=== PATIENT | male | born 1940 | race Caucasian/White ===

== ENCOUNTER 2019-10-04 13:38 | Observation (INO) | payer MEDICARE, BC ==
[~2019-10-04] VITALS: Ht 175.3 cm; Wt 93.0 kg
[2019-10-04] VITALS (7 sets, daily range): BP systolic 119–152; BP diastolic 54–74
--- NOTE | 2019-10-04 01:00 | NUR ---
patient arrived on the floor from short stay for observation after de clotting his LAUREEN fistula with a purse loop suture attached. per RN, Dr. Arevalo is going to see pt later tonight. 2x2 dressing on the fistula with some bleeding noted, PLUSH WEAVER Sara made aware and will continue to monitor . pt in no acute distress
[2019-10-04 11:37] LABS: BASOPHILS # (AUTO) 0.1 X10'3 (0-0.2); BASOPHILS % (AUTO) 0.9 % (0-1); EOSINOPHILS # (AUTO) 0.2 X10'3 (0-0.9); EOSINOPHILS % (AUTO) 1.8 % (0-6); HEMATOCRIT 33.9 % (42.0-52.0); HEMOGLOBIN 11.9 g/dl (14.0-17.9); LYMPHOCYTES # (AUTO) 1.2 X10'3 (1.1-4.8); LYMPHOCYTES % (AUTO) 12.2 % (21-51); MEAN CORPUSCULAR HEMOGLOBIN 34.7 PG (27.0-31.0); MEAN CORPUSCULAR HGB CONC 35.2 g/dL (33.0-36.5); MEAN CORPUSCULAR VOLUME 98.7 FL (78-98); MEAN PLATELET VOLUME 7.8 FL (7.4-10.4); MONOCYTES # (AUTO) 0.5 X10'3 (0-0.9); NEUTROPHILS # (AUTO) 7.8 X10'3 (1.8-7.7); NEUTROPHILS % (AUTO) 80.1 % (42-75); PLATELET COUNT 273 X10'3 (140-440); RED BLOOD COUNT 3.44 X10'6 (4.70-6.10); RED CELL DISTRIBUTION WIDTH 12.6 % (11.5-14.5); WHITE BLOOD COUNT 9.7 X10'3 (4.5-11.0)
[2019-10-04 11:48] LABS: ALBUMIN 3.6 G/DL (3.4-5.0); ANION GAP 11 (8-16); BLOOD UREA NITROGEN 49 MG/DL (7-18); BUN/CREATININE RATIO 7.1 (5.4-32.0); CALCIUM 9.1 MG/DL (8.5-10.1); CHLORIDE 106 MMOL/L (99-107); CREATININE 6.94 MG/DL (0.60-1.10); GLUCOSE 92 MG/DL (70-104); POTASSIUM 3.8 MMOL/L (3.5-5.1); SODIUM 145 MMOL/L (135-145); TOTAL CARBON DIOXIDE 27.6 MMOL/L (24-32); eGFR 8 ML/MIN
[~2019-10-04 13:38] MED LIST: normal saline 1000ml 1,000 ML IV SCH; tPA-cathflo 2 MG/2 ml IV flush ONE
[2019-10-04] MEDS ORDERED: LIDOcaine 1%/PF 5ML 10 MG/ML VIAL ONE (15:00)
[2019-10-04] MEDS ORDERED: iohexol 300mg/ml 100ml inj. ONE ×2 (15:01→16:17)
[2019-10-04] MEDS ORDERED: heparin 1,000 UNITS/NS 500ml 500 ML ONE ×2 (15:01→16:58)
[2019-10-04] MEDS ORDERED: fentaNYL/PF 50MCG/1 ML 2ML syringe ONE ×3 (15:01→16:20)
[2019-10-04] MEDS ORDERED: midazolam 2 mg/2 ml injection ONE ×5 (15:01→16:18)
[2019-10-04] MEDS ORDERED: heparin 1,000unit/ml 10ml vial 10 ML ONE (16:16)
[2019-10-04] MEDS ORDERED: HYDROmorphone 1 mg/ml syringe ONE ×2 (16:20→17:05)
--- NOTE | 2019-10-04 19:30 | NUR ---
ENTERED ROOM TO BEGIN D/C. PATIENT FISTULA SITE BLEEDING. DR GALLEGOS ASSESSED PURSE LOOP CLOSURE AND HEMOSTASIS WAS NOT ACHIEVED WITHOUT LOOP IN PLACE. PATIENT WAS TRANSFERRED TO [facility] AND ADMITTED FOR OBSERVATION OVERNIGHT. HOSPITALIST NOTIFIED BY DR GALLEGOS. PATIENT HAD ALL BELONGINGS.
--- NOTE | 2019-10-04 19:38 | NUR ---
Patient in room . I have received report from GWEN Ruano (short stay) and had the opportunity to ask questions and assume patient care. Addendum: 10/04/19 at 1938 by Conchita Scott RN Amended: Links added.
[2019-10-04] MEDS ORDERED: acetaminophen 325mg tablet PO PRN ×2 (20:15)
[2019-10-04] MEDS ORDERED: ondansetron/PF 4mg/2ml inj IV PRN (20:15)
[2019-10-04] MEDS ORDERED: bisacodyl 10mg suppository rectal RC PRN (20:15)
[2019-10-05] VITALS: BP 101/50
[2019-10-05 05:35] LABS: BASOPHILS # (AUTO) 0.1 X10'3 (0-0.2); BASOPHILS % (AUTO) 1.1 % (0-1); EOSINOPHILS # (AUTO) 0.2 X10'3 (0-0.9); EOSINOPHILS % (AUTO) 2.8 % (0-6); HEMATOCRIT 28.5 % (42.0-52.0); LYMPHOCYTES # (AUTO) 1.3 X10'3 (1.1-4.8); LYMPHOCYTES % (AUTO) 17.2 % (21-51); MEAN CORPUSCULAR HEMOGLOBIN 34.4 PG (27.0-31.0); MEAN CORPUSCULAR VOLUME 98.3 FL (78-98); MONOCYTES # (AUTO) 0.6 X10'3 (0-0.9); MONOCYTES % (AUTO) 8.2 % (2-12); NEUTROPHILS # (AUTO) 5.4 X10'3 (1.8-7.7); NEUTROPHILS % (AUTO) 70.7 % (42-75); PLATELET COUNT 224 X10'3 (140-440); RED CELL DISTRIBUTION WIDTH 12.4 % (11.5-14.5); WHITE BLOOD COUNT 7.7 X10'3 (4.5-11.0)
[2019-10-05 05:37] LABS: ALANINE AMINOTRANSFERASE 8 U/L (12-78); ALBUMIN 2.8 G/DL (3.4-5.0); ALKALINE PHOSPHATASE 81 IU/L (46-116); ANION GAP 8 (8-16); ASPARTATE AMINO TRANSFERASE 10 U/L (10-37); BILIRUBIN,TOTAL 0.4 MG/DL (0.1-1.0); BLOOD UREA NITROGEN 51 MG/DL (7-18); BUN/CREATININE RATIO 7.2 (5.4-32.0); CALCIUM 8.2 MG/DL (8.5-10.1); CHLORIDE 110 MMOL/L (99-107); CREATININE 7.05 MG/DL (0.60-1.10); GLUCOSE 84 MG/DL (70-104); PHOSPHORUS 5.1 MG/DL (2.3-4.5); POTASSIUM 4.2 MMOL/L (3.5-5.1); SODIUM 146 MMOL/L (135-145); TOTAL CARBON DIOXIDE 28.3 MMOL/L (24-32); TOTAL PROTEIN 5.7 G/DL (6.4-8.2); eGFR 8 ML/MIN
--- NOTE | 2019-10-05 06:29 | NUR ---
Problems reprioritized. Patient report given, questions answered & plan of care reviewed with GWEN Basurto.
--- NOTE | 2019-10-05 06:44 | NUR ---
Patient in room [facility]. I have received report from CHRISTIANE Posada RN and had the opportunity to ask questions and assume patient care.
[2019-10-05] MEDS ORDERED: normal saline 1000ml 250 ML IV PRN (06:52)
[2019-10-05] MEDS ORDERED: normal saline 1000ml 100 ML IV PRN (06:52)
[2019-10-05 07:40] VITALS: BP 102/48
--- NOTE | 2019-10-05 10:56 | NUR ---
DM consult re: "pt on dialysis". Pt with no listed PMH of diabetes and no A1c from current or past visits. Likely pt sees an outpatient renal dietitian as pt with ESRD on routine HD. No nutrition education warranted at this time. Pt pending discharge. Will continue to follow. Addendum: 10/05/19 at [address] Amended: Links added.
--- NOTE | 2019-10-05 11:15 | NUR ---
Patient discharged into his own care. Patient discharge teaching was done with Patient only. Patient was educated on his appointment with linnea at 1420. Patient understands and has already set up a ride. No new medications were prescribed at discharge so no change to medication regime. Patient left with all belongings upon discharge, and IV was taken out at this time as well. IV was whole and intact upon removal. patient shwoed minimal signs of bleeding upon removal of IV. Patient taken down to lobby via wheel chair.
--- NOTE | 2019-10-10 09:39 | NUR ---
case management DC follow up: post procedure/cath clot LUE fistula. Unable to contact/pt phone does not have VM, no answer.
== END 2019-10-05 11:06 | disposition home or self-care (01) ==
LOC: SSTAY O 13:38 → SUR 3N 20:15
PROVIDERS: ADMIT Internal Medicine Critical Care Medicine; ATTEND Radiology Vascular & Interventional Radiology
DX: T82.868A Thrombosis due to vascular prosthetic devices, implants and grafts, initial encounter (principal); I12.0 Hypertensive chronic kidney disease with stage 5 chronic kidney disease or end stage renal disease; N18.6 End stage renal disease; G47.30 Sleep apnea, unspecified; Z96.659 Presence of unspecified artificial knee joint; Z86.718 Personal history of other venous thrombosis and embolism; Z99.2 Dependence on renal dialysis
CPT/HCPCS: 36415; 36905; 80048; 80053; 83735; 84100; 85025; 87081; C1725; C1769; C1894; G0378; J1170; J1644; J2250; J2997; J3010; Q9967; 99152; 99153

== ENCOUNTER 2019-12-19 09:33 | Day surgery (SDC) | payer MEDICARE, BC ==
[~2019-12-19] VITALS: Ht 177.8 cm; Wt 93.7 kg
[2019-12-19] VITALS (7 sets, daily range): BP systolic 109–121; BP diastolic 51–80
[2019-12-19] MEDS ORDERED: normal saline 1000ml 1,000 ML IV SCH (10:15)
[2019-12-19] MEDS ORDERED: midazolam 2 mg/2 ml injection ONE ×3 (10:29→12:05)
[2019-12-19] MEDS ORDERED: LIDOcaine 1%/PF 5ML 10 MG/ML VIAL ONE (10:29)
[2019-12-19] MEDS ORDERED: iohexol 300mg/ml 100ml inj. ONE (10:30)
[2019-12-19] MEDS ORDERED: fentaNYL/PF 50MCG/1 ML 2ML syringe ONE ×3 (10:30→11:59)
[2019-12-19] MEDS ORDERED: heparin 1,000 UNITS/NS 500ml 500 ML ONE ×2 (10:30→10:46)
[2019-12-19 10:32] LABS: ALANINE AMINOTRANSFERASE 17 U/L (12-78); ALBUMIN 2.9 G/DL (3.4-5.0); ALBUMIN/GLOBULIN RATIO 0.9 (1.1-1.5); ALKALINE PHOSPHATASE 131 IU/L (46-116); ANION GAP 10 (8-16); ASPARTATE AMINO TRANSFERASE 17 U/L (10-37); BILIRUBIN,TOTAL 0.6 MG/DL (0.1-1.0); BLOOD UREA NITROGEN 38 MG/DL (7-18); BUN/CREATININE RATIO 5.4 (5.4-32.0); CALCIUM 9.1 MG/DL (8.5-10.1); CHLORIDE 111 MMOL/L (99-107); CREATININE 7.01 MG/DL (0.60-1.10); GLUCOSE 94 MG/DL (70-104); POTASSIUM 3.6 MMOL/L (3.5-5.1); SODIUM 150 MMOL/L (135-145); TOTAL CARBON DIOXIDE 29.5 MMOL/L (24-32); TOTAL PROTEIN 6.3 G/DL (6.4-8.2); eGFR 8 ML/MIN
[2019-12-19] MEDS ORDERED: tPA-cathflo 2 MG/2 ml IV flush ONE (11:02)
[2019-12-19] MEDS ORDERED: heparin 1,000unit/ml 10ml vial 10 ML ONE (11:35)
== END 2019-12-19 14:55 | disposition home or self-care (01) ==
LOC: SSTAY O 09:33
PROVIDERS: ATTEND Radiology Diagnostic Radiology
DX: T82.868A Thrombosis due to vascular prosthetic devices, implants and grafts, initial encounter (principal); N18.6 End stage renal disease; Z88.8 Allergy status to other drugs, medicaments and biological substances; Y83.2 Surgical operation with anastomosis, bypass or graft as the cause of abnormal reaction of the patient, or of later complication, without mention of misadventure at the time of the procedure; Y92.89 Other specified places as the place of occurrence of the external cause
CPT/HCPCS: 36415; 36905; 80053; 99152; 99153; C1725; C1769; C1894; J1644; J2250; J2997; J3010; Q9967

== ENCOUNTER 2020-02-17 09:38 | Day surgery (SDC) | payer MEDICARE, BC ==
[~2020-02-17] VITALS: Ht 175.3 cm; Wt 93.5 kg
[2020-02-17] VITALS (7 sets, daily range): BP systolic 92–129; BP diastolic 51–62
[2020-02-17] MEDS ORDERED: normal saline 1000ml 1,000 ML IV PRN (10:00)
[2020-02-17] MEDS ORDERED: NO HOME MEDS (10:02)
[2020-02-17 10:31] LABS: ALBUMIN 2.7 G/DL (3.4-5.0); ANION GAP 12 (8-16); BLOOD UREA NITROGEN 47 MG/DL (7-18); BUN/CREATININE RATIO 5.7 (5.4-32.0); CHLORIDE 106 MMOL/L (99-107); CREATININE 8.19 MG/DL (0.60-1.10); GLUCOSE 89 MG/DL (70-104); POTASSIUM 3.3 MMOL/L (3.5-5.1); SODIUM 143 MMOL/L (135-145); eGFR 6 ML/MIN
[2020-02-17] MEDS ORDERED: tPA-cathflo 2 MG/2 ml IV flush ONE (11:09)
[2020-02-17] MEDS ORDERED: iohexol 300mg/ml 100ml inj. ONE (13:25)
[2020-02-17] MEDS ORDERED: LIDOcaine 1%/PF 5ML 10 MG/ML VIAL ONE (13:25)
[2020-02-17] MEDS ORDERED: midazolam 2 mg/2 ml injection ONE ×3 (13:33→14:16)
[2020-02-17] MEDS ORDERED: fentaNYL/PF 50MCG/1 ML 2ML syringe ONE ×4 (13:33→14:43)
[2020-02-17] MEDS ORDERED: heparin 1,000 UNITS/NS 500ml 500 ML ONE (13:33)
== END 2020-02-17 17:00 | disposition home or self-care (01) ==
LOC: SSTAY O 09:38
PROVIDERS: ATTEND Radiology Diagnostic Radiology
DX: T82.868A Thrombosis due to vascular prosthetic devices, implants and grafts, initial encounter (principal); Z88.8 Allergy status to other drugs, medicaments and biological substances; Y83.2 Surgical operation with anastomosis, bypass or graft as the cause of abnormal reaction of the patient, or of later complication, without mention of misadventure at the time of the procedure; Y92.89 Other specified places as the place of occurrence of the external cause
CPT/HCPCS: 36415; 36905; 80048; 99152; 99153; C1725; C1769; C1894; J1644; J2250; J2997; J3010; Q9967

== ENCOUNTER 2020-04-22 06:19 | Day surgery (SDC) | payer MEDICARE, BC ==
[~2020-04-22] VITALS: Ht 175.3 cm; Wt 89.4 kg
[2020-04-22] VITALS (7 sets, daily range): BP systolic 99–144; BP diastolic 39–79
[~2020-04-22 06:19] MED LIST changes: +NO HOME MEDS; -normal saline 1000ml 1,000 ML IV SCH; -tPA-cathflo 2 MG/2 ml IV flush ONE
[2020-04-22] MEDS ORDERED: normal saline 1000ml 1,000 ML IV SCH (06:40)
[2020-04-22 07:26] LABS: BASOPHILS # (AUTO) 0.1 X10'3 (0-0.2); BASOPHILS % (AUTO) 1.3 % (0-1); EOSINOPHILS # (AUTO) 0.3 X10'3 (0-0.9); EOSINOPHILS % (AUTO) 4.4 % (0-6); HEMATOCRIT 30.1 % (42.0-52.0); HEMOGLOBIN 10.2 g/dl (14.0-17.9); LYMPHOCYTES # (AUTO) 0.9 X10'3 (1.1-4.8); LYMPHOCYTES % (AUTO) 12.1 % (21-51); MEAN CORPUSCULAR HEMOGLOBIN 34.6 PG (27.0-31.0); MEAN CORPUSCULAR VOLUME 101.6 FL (78-98); MONOCYTES # (AUTO) 0.6 X10'3 (0-0.9); MONOCYTES % (AUTO) 7.2 % (2-12); NEUTROPHILS # (AUTO) 5.8 X10'3 (1.8-7.7); PLATELET COUNT 304 X10'3 (140-440); RED BLOOD COUNT 2.96 X10'6 (4.70-6.10); RED CELL DISTRIBUTION WIDTH 19.5 % (11.5-14.5); WHITE BLOOD COUNT 7.7 X10'3 (4.5-11.0)
[2020-04-22 07:42] LABS: ANION GAP 10 (8-16); BLOOD UREA NITROGEN 43 MG/DL (7-18); BUN/CREATININE RATIO 5.3 (5.4-32.0); CALCIUM 8.5 MG/DL (8.5-10.1); CHLORIDE 103 MMOL/L (99-107); CREATININE 8.11 MG/DL (0.60-1.10); GLUCOSE 85 MG/DL (70-104); POTASSIUM 3.7 MMOL/L (3.5-5.1); SODIUM 140 MMOL/L (135-145); TOTAL CARBON DIOXIDE 27.5 MMOL/L (24-32); eGFR 6 ML/MIN
[2020-04-22 08:08] LABS: PLATELET ESTIMATE NORMAL
[2020-04-22] MEDS ORDERED: fentaNYL/PF 50MCG/1 ML 2ML syringe ONE ×4 (08:31→10:27)
[2020-04-22] MEDS ORDERED: iohexol 300mg/ml 100ml inj. ONE (08:31)
[2020-04-22] MEDS ORDERED: LIDOcaine 1%/PF 5ML 10 MG/ML VIAL ONE ×2 (08:31→10:38)
[2020-04-22] MEDS ORDERED: midazolam 2 mg/2 ml injection ONE ×5 (08:31→10:27)
[2020-04-22] MEDS ORDERED: heparin 1,000 UNITS/NS 500ml 500 ML ONE (08:31)
[2020-04-22] MEDS ORDERED: tPA-cathflo 2 MG/2 ml IV flush ONE (09:38)
[2020-04-22] MEDS ORDERED: FOLI0.8C PO (11:17)
[2020-04-22] MEDS ORDERED: PANT-47 PO (11:17)
[2020-04-22] MEDS ORDERED: MIDO5TAB4 PO (11:18)
== END 2020-04-22 13:30 | disposition home or self-care (01) ==
LOC: SSTAY O 06:19
PROVIDERS: ATTEND Radiology Diagnostic Radiology
DX: T82.868A Thrombosis due to vascular prosthetic devices, implants and grafts, initial encounter (principal); N18.9 Chronic kidney disease, unspecified; Z99.2 Dependence on renal dialysis; Z88.8 Allergy status to other drugs, medicaments and biological substances; Y83.2 Surgical operation with anastomosis, bypass or graft as the cause of abnormal reaction of the patient, or of later complication, without mention of misadventure at the time of the procedure; Y92.89 Other specified places as the place of occurrence of the external cause; Z20.828 Contact with and (suspected) exposure to other viral communicable diseases
CPT/HCPCS: 36415; 36905; 80048; 85008; 85025; 87635; 99152; 99153; C1725; C1769; C1894; C9803; J1644; J2250; J2997; J3010; Q9967

== ENCOUNTER 2020-11-10 13:21 | Emergency (ER) | payer MEDICARE, BC ==
[~2020-11-10] VITALS: Ht 175.3 cm; Wt 84.1 kg
[~2020-11-10 13:21] MED LIST changes: +FOLI0.8C PO; +MIDO5TAB4 PO; -NO HOME MEDS; +PANT-47 PO
[2020-11-10 14:30] VITALS: BP 125/55
== END 2020-11-10 15:05 | disposition home or self-care (01) ==
LOC: ER 13:22
DX: Z02.89 Encounter for other administrative examinations (principal); I77.2 Rupture of artery; N18.9 Chronic kidney disease, unspecified; Z88.8 Allergy status to other drugs, medicaments and biological substances; Z79.899 Other long term (current) drug therapy
CPT/HCPCS: 99283

== ENCOUNTER 2021-01-14 06:15 | Day surgery (SDC) | payer MEDICARE, BC ==
[~2021-01-14] VITALS: Ht 175.3 cm; Wt 91.2 kg
[2021-01-14] MEDS ORDERED: normal saline 1000ml 1,000 ML IV SCH (06:35)
[2021-01-14 06:45] VITALS: BP 115/53
[2021-01-14 07:18] LABS: BASOPHILS # (AUTO) 0.1 X10'3 (0-0.2); BASOPHILS % (AUTO) 1.2 % (0-1); EOSINOPHILS # (AUTO) 0.3 X10'3 (0-0.9); EOSINOPHILS % (AUTO) 3.8 % (0-6); HEMATOCRIT 29.2 % (42.0-52.0); HEMOGLOBIN 10.2 g/dl (14.0-17.9); LYMPHOCYTES # (AUTO) 1.2 X10'3 (1.1-4.8); LYMPHOCYTES % (AUTO) 13.1 % (21-51); MEAN CORPUSCULAR HEMOGLOBIN 35.3 PG (27.0-31.0); MEAN CORPUSCULAR HGB CONC 34.8 g/dL (33.0-36.5); MEAN CORPUSCULAR VOLUME 101.3 FL (78-98); MEAN PLATELET VOLUME 7.5 FL (7.4-10.4); MONOCYTES # (AUTO) 0.7 X10'3 (0-0.9); MONOCYTES % (AUTO) 8.2 % (2-12); NEUTROPHILS # (AUTO) 6.6 X10'3 (1.8-7.7); NEUTROPHILS % (AUTO) 73.7 % (42-75); PLATELET COUNT 333 X10'3 (140-440); RED BLOOD COUNT 2.88 X10'6 (4.70-6.10); RED CELL DISTRIBUTION WIDTH 13.3 % (11.5-14.5); WHITE BLOOD COUNT 8.9 X10'3 (4.5-11.0)
[2021-01-14 07:33] LABS: ANION GAP 19 (8-16); BLOOD UREA NITROGEN 95 MG/DL (7-18); BUN/CREATININE RATIO 11.7 (5.4-32.0); CALCIUM 8.1 MG/DL (8.5-10.1); CHLORIDE 107 MMOL/L (99-107); CREATININE 8.15 MG/DL (0.60-1.10); GLUCOSE 84 MG/DL (70-104); SODIUM 144 MMOL/L (135-145); TOTAL CARBON DIOXIDE 18.1 MMOL/L (24-32); eGFR 6 ML/MIN
[2021-01-14] MEDS ORDERED: ACET325T54 PO (07:39)
[2021-01-14] MEDS ORDERED: AMIO200T61 PO (07:39)
[2021-01-14] MEDS ORDERED: FA/V1TAB PO (07:39)
[2021-01-14] MEDS ORDERED: XAL0.005OS OP (07:39)
[2021-01-14] MEDS ORDERED: SERT-153 PO (07:39)
[2021-01-14] MEDS ORDERED: CYCL-1 PO (07:39)
[2021-01-14] MEDS ORDERED: TRAZ-251 PO (07:39)
[2021-01-14] MEDS ORDERED: CALC667T6 PO (07:39)
[2021-01-14] MEDS ORDERED: FOLI0.4T14 PO (07:39)
[2021-01-14] MEDS ORDERED: heparin 1,000 UNITS/NS 500ml 500 ML ONE (08:10)
[2021-01-14] MEDS ORDERED: midazolam 1 mg/ML 2ml injection ONE ×2 (08:10→09:39)
[2021-01-14] MEDS ORDERED: LIDOcaine 1%/PF 5ML 10 MG/ML VIAL ONE ×2 (08:10→09:19)
[2021-01-14] MEDS ORDERED: fentaNYL/PF 50MCG/1 ML 2ML syringe ONE ×3 (08:10→09:39)
[2021-01-14] MEDS ORDERED: iohexol 300mg/ml 100ml inj. ONE (08:10)
[2021-01-14] MEDS ORDERED: tPA-cathflo 2 MG/2 ml IV flush ONE ×2 (08:29→08:45)
[2021-01-14] MEDS ORDERED: heparin 1,000unit/ml 10ml vial 10 ML ONE (09:34)
[2021-01-14] MEDS ORDERED: iohexol 300 MG/1 ML 50ml polymer ONE (09:43)
[2021-01-14 10:19] VITALS: BP 117/43
[2021-01-14 10:34] VITALS: BP 123/51
[2021-01-14 10:49] VITALS: BP 115/58
[2021-01-14 11:04] VITALS: BP 110/50
== END 2021-01-14 11:35 | disposition home or self-care (01) ==
LOC: SSTAY O 06:15
PROVIDERS: ATTEND Radiology Vascular & Interventional Radiology
DX: T82.868A Thrombosis due to vascular prosthetic devices, implants and grafts, initial encounter (principal); Z87.891 Personal history of nicotine dependence; Z88.8 Allergy status to other drugs, medicaments and biological substances; Z79.01 Long term (current) use of anticoagulants; Y83.2 Surgical operation with anastomosis, bypass or graft as the cause of abnormal reaction of the patient, or of later complication, without mention of misadventure at the time of the procedure; Y92.89 Other specified places as the place of occurrence of the external cause
CPT/HCPCS: 36415; 36558; 36905; 76937; 77001; 80048; 85025; 85610; 99152; 99153; C1725; C1750; C1769; C1894; J1644; J2250; J2997; J3010; Q9967